=== PATIENT | female | born 1985 | race American Indian/Alaskan Native ===

== ENCOUNTER 2019-02-19 03:59 | Emergency (ER) | payer OTHER ==
[2019-02-19 05:01] LABS: Basophils % (Auto) 0.3 % (0.0-1.8); Eosinophils # (Auto) 0.4 K/mm3 (0.0-0.4); Eosinophils % (Auto) 4.2 % (0.0-4.3); Hematocrit 33.9 % (30.3-42.9); Hemoglobin 11.3 gm/dl (10.1-14.3); Lymphocytes # (Auto) 2.7 K/mm3 (1.2-5.4); Lymphocytes % (Auto) 30.2 % (13.4-35.0); Mean Corpuscular HGB Conc 33 % (30-34); Mean Corpuscular Volume 79 fl (79-97); Monocytes # (Auto) 0.5 K/mm3 (0.0-0.8); Platelet Count 317 K/mm3 (140-440); Red Cell Distribution Width 16.3 % (13.2-15.2)
--- NOTE | 2019-02-19 05:13 | XRay Report ---
PROCEDURE: XR CHEST ROUTINE 2V TECHNIQUE: PA and lateral chest radiographs were obtained. HISTORY: SAM COMPARISONS: None. FINDINGS: No mediastinal shift. Cardiac silhouette is not enlarged. No pneumothorax, effusion, or focal pulmo nary opacity. No acute skeletal finding. IMPRESSION: No focal pulmonary opacity. This document is electronically signed by Alexis Lo MD., Feb 19 2019 05:10:46 AM ET
[2019-02-19 05:19] LABS: Alanine Aminotransferase 16 units/L (7-56); Albumin 4.3 g/dL (3.9-5); BUN/Creatinine Ratio 10; Blood Urea Nitrogen 9 mg/dL (7-17); Calcium 9.2 mg/dL (8.4-10.2); Hemolysis Index 8; Uric Acid 4.6 mg/dL (3.5-7.6)
[2019-02-19 05:35] LABS: Bilirubin,Urine NEG (Negative); Blood,Urine MOD (Negative); Color,Urine Yellow (Yellow); Protein,Urine <15 mg/dL mg/dL (Negative); Urobilinogen,Urine < 2.0 mg/dL (<2.0)
[2019-02-19 05:45] VITALS: BP 153/88
--- NOTE | 2019-02-19 06:26 | Emergency Department Report ---
ED Dizziness HPI - General Chief Complaint: Dizziness Stated Complaint: LIGHT HEADED DIZZY Time Seen by Provider: 02/19/19 06:29 Source: patient Mode of arrival: Ambulatory Limitations: No Limitations - History of Present Illness Initial Comments: Patient is a 33-year-old female presents to emergency room with complaints of lightheaded and dizziness 1 hour. Patient also complaining of bilateral lower extremity edema that is worsening and shortness of breath. Patient states she recently delivered on 01/12/2019 at 30 weeks secondary to preeclampsia. Patient states she had lotion initially with it resolved and return today. Patient states she did not call her [employer]. Patient states she delivered at [place]. Complaint: dizziness, lightheadedness -: Sudden Timing: sudden onset Description: "room spinning", lightheadedness History of Same: Yes History of Trauma: No Severity: severe Improves With: rest Worsens With: movement, exertion Associated Symptoms: shortness of breath. denies: ataxia, chest pain, confusion, diaphoresis, fever/chills, loss of appetite, malaise, rash, seizure, syncope, weakness - Related Data Allergies Allergy/AdvReac Type Severity Reaction Status Date / Time No Known Allergies Allergy Unverified 02/19/19 04:12 ED Review of Systems ROS: Stated complaint: LIGHT HEADED DIZZY Other details as noted in HPI Constitutional: denies: chills, fever Eyes: denies: eye pain, eye discharge, vision change ENT: denies: ear pain, throat pain Respiratory: shortness of breath. denies: cough, wheezing Cardiovascular: edema. denies: chest pain, palpitations Endocrine: no symptoms reported Gastrointestinal: denies: abdominal pain, nausea, diarrhea Genitourinary: denies: urgency, dysuria, discharge Musculoskeletal: denies: back pain, joint swelling, arthralgia Skin: denies: rash, lesions Neurological: denies: headache, weakness, paresthesias Psychiatric: denies: anxiety, depression Hematological/Lymphatic: denies: easy bleeding, easy bruising ED Past Medical Hx - Past Medical History Previous Medical History?: Yes Hx Hypertension: Yes (Pre eclampsia) - Surgical History Past Surgical History?: Yes Additional Surgical History: c sec - Social History Smoking Status: Former Smoker Substance Use Type: Alcohol, Marijuana ED Physical Exam - General Limitations: No Limitations ED Course Vital Signs 02/19/19 02/19/19 02/19/19 04:05 04:34 05:45 Temperature 98.1 F 98.7 F Pulse Rate 73 Respiratory 18 16 Rate Blood Pressure 144/93 Blood Pressure 153/88 [Right] O2 Sat by Pulse 99 100 Oximetry - Reevaluation(s) Reevaluation #1: After initial exam patient, I discussed results with the patient and patient states she wants to sign out AMA to go to [facility] to be where her baby and her [employer] is. I discussed the risk of leaving AGAINST MEDICAL ADVICE. Patient was understanding of the wrist. Patient signed AMA form. 02/19/19 06:28 ED Medical Decision Making - Lab Data Result diagrams: 02/19/19 04:40 02/19/19 04:40 - EKG Data -: EKG Interpreted by Me EKG shows normal: sinus rhythm, axis, intervals, QRS complexes, ST-T waves - Radiology Data Radiology results: image reviewed interpreted by me: Negative chest x-ray PROCEDURE: XR CHEST ROUTINE 2V TECHNIQUE: PA and lateral chest radiographs were obtained. HISTORY: SAM COMPARISONS: None. FINDINGS: No mediastinal shift. Cardiac silhouette is not enlarged. No pneumothorax, effusion, or focal pulmonary opacity. No acute skeletal finding. IMPRESSION: No focal pulmonary opacity. - Medical Decision Making She is a 33-year-old female presents emergency room with lower oximetry swelling and dizziness and lightheadedness. Patient also complained of shortness of breath. Patient recently delivered a baby 4 weeks ago and the baby is still in the ICU. Patient's pain was delivered early secondary to preeclampsia. Patient's blood pressure elevated. Patient states she did not want to be admitted here if that is necessary and would rather leave and go back to [place]. Patient states she came here this was closer but after being here she wants to go to [facility] were her baby was delivered and were baby is currently in the ICU. I discussed the risk of leaving the hospital AGAINST MEDICAL ADVICE with the patient. Patient voiced understanding of risks. Patient signed AMA form. Patient left the hospital AGAINST MEDICAL ADVICE. - Differential Diagnosis dizziness Preeclampsia. Hypertension. Lower extremity swelling. DVT. Critical care attestation.: If time is entered above; I have spent that time in minutes in the direct care of this critically ill patient, excluding procedure time. ED Disposition Clinical Impression: Dizziness, Lower extremity edema, SOB (shortness of breath) Disposition: [id number] LEFT AGAINST MED ADVICE Is pt being admited?: No Does the pt Need Aspirin: No Condition: Undetermined Time of Disposition: 06:29
== END 2019-02-19 06:52 | disposition left against medical advice (07) ==
LOC: ED 03:59
DX: R60.9 Edema, unspecified (principal); R06.02 Shortness of breath; R42 Dizziness and giddiness; I10 Essential (primary) hypertension; F12.10 Cannabis abuse, uncomplicated; Z87.891 Personal history of nicotine dependence
CPT/HCPCS: 36415; 71046; 80053; 81001; 83880; 84550; 85025; 93005; 93010